=== PATIENT | female | born 1970 | race Caucasian/White ===

== ENCOUNTER 2023-06-10 07:43 | Day surgery (SDC) | payer BC ==
[~2023-06-10] VITALS: Ht 157.5 cm; Wt 64.4 kg
[2023-06-10 08:31] LABS: HCG,QUAL RESULT NEGATIVE (NEGATIVE)
[2023-06-10] MEDS ORDERED: MIDAZOLAM HCL 5 MG/5 ML VIAL ONE (09:31)
[2023-06-10] MEDS ORDERED: MEPERIDINE 100 MG INJ. 100 MG/ML VIAL ONE (09:32)
[2023-06-10 12:54] VITALS: O2SAT 100
[2023-06-10 13:22] VITALS: BP_SYST 112; PULSE 60; RESP 17
== END 2023-06-10 11:00 | disposition home or self-care (01) ==
LOC: SMU 07:43 → SDS 07:43
PROVIDERS: ATTEND Internal Medicine Gastroenterology
DX: Z12.11 Encounter for screening for malignant neoplasm of colon (principal); K57.30 Diverticulosis of large intestine without perforation or abscess without bleeding; K64.8 Other hemorrhoids; K21.9 Gastro-esophageal reflux disease without esophagitis; Z90.49 Acquired absence of other specified parts of digestive tract; Z79.899 Other long term (current) drug therapy
CPT/HCPCS: 45378; 99152; 84703; G0378; J2250; J2175